=== PATIENT | female | born 1970 | race Two or more races ===

== ENCOUNTER 2017-10-01 19:09 | Emergency (ER) | payer BC ==
[2017-10-01 19:49] LABS: % BASOPHILS 0.6 % (0.0-2.0); % EOSINOPHILS 2.6 % (0.0-5.0); % LYMPHOCYTES 29.4 % (20.0-50.0); % MONOCYTES 9.1 % (2.0-10.0); % NEUTROPHILS 58.3 % (40.0-80.0); EOSINOPHILE ABSOLUTE 0.2 Th/cmm (0.1-0.4); HEMATOCRIT 42.2 % (41.0-60); HEMOGLOBIN 14.3 gm/dL (12-16); LYMPHOCYTE ABSOLUTE 2.2 Th/cmm (1.5-3.0); MEAN CELL VOLUME 88.1 fl (81-100); MEAN PLATELET VOLUME 7.8 fl; MONOCYTE ABSOLUTE 0.7 Th/cmm (0.3-1.0); NEUTROPHILE ABSOLUTE 4.5 Th/cmm (1.8-8.0); PLATELET COUNT 322 Th/cmm (150-400); RED BLOOD COUNT 4.79 Mil/cmm (3.80-5.10); RED CELL DISTRIBUTION WIDTH 11.6 % (11.5-20.0); WHITE BLOOD COUNT 7.6 Th/cmm (4.8-10.8)
[2017-10-01] MEDS ORDERED: Albuterol/Ipratropium Neb 3 ML AERS HHN ONE (19:49)
[2017-10-01 19:59] LABS: URINE MICROSCOPIC INDICATED? YES; URINE SOURCE RANDOM
--- NOTE | 2017-10-01 20:01 | ED Physician Chart ---
ED Chief Complaint/HPI - Patient Information Date Seen:: 10/01/17 Time Seen:: 19:50 Chief Complaint:: Cough History of Present Illness:: 47 yo female had dry cough for 2 weeks. She had chest pain and SOB when coughing. She had chills without fever. She had whooping cough 4 years ago. Allergies:: Allergies Allergy/AdvReac Type Severity Reaction Status Date / Time No Known Allergies Allergy Verified 10/01/17 19:13 Vitals:: Vital Signs - 8 hr 10/01/17 19:14 Temp 98.5 F HR 81 RR 18 BP 134/70 O2 Sat % 99 ED Review of Systems - Review of Systems General/Constitutional: No fever, Chills Skin: No skin lesions Head: Headache Eyes: No pain ENT: No nasal drainage Neck: No neck pain Cardio Vascular: Chest pain Pulmonary: SOB GI: No nausea, No vomiting Musculoskeletal: No bone or joint pain Psychiatric: Anxiety Neurological: No focal symptoms ED Past Medical History - Past Medical History Past Medical History: Asthma/COPD Social History: Non Smoker, No Alcohol, No Drug Use Surgical History: Appendectomy, other (sinus surgery) Psychiatricy History: Other (Anxiety) Family Medical History - Family Member Mother History Unknown: Yes ED Physical Exam - Physical Examination General/Constitutional: Awake Head: Atraumatic Eyes: PERRL Skin: No skin lesions ENMT: Nasal exam nl Neck: No nuchal rigidity Other Respiratory comments:: B/L rhonchi Cardio Vascular: RRR, No murmur, gallop, rubs, NL S1 S2 GI: No tenderness/rebounding/guarding Extremities: normal strength in all extremities Neuro/Psych: No focal deficits ED Labs/Radiology/EKG Results - Lab Results Results: Laboratory Tests 10/01/17 19:42 WBC 7.6 RBC 4.79 Hgb 14.3 Hct 42.2 MCV 88.1 MCH 30.0 MCHC Differential 34.0 RDW 11.6 Plt Count 322 MPV 7.8 Neutrophils % 58.3 Lymphocytes % 29.4 Monocytes % 9.1 Eosinophils % 2.6 Basophils % 0.6 - Radiology Results Results: CXR: no consolidation ED Assessment - Assessment General Assessment: Bronchitis Assessment/Comments:: CBC, CMP, UA, urine hCG Influenza A/B CXR DuoNeb Robitussin Tylenol NS 1L IV bolus Azithromycin 500mg x 1 D/c home Azithromycin 250mg qd x 4 days F/u PCP or return to ER if symptoms worsen ED Septic Shock - . Is Septic Shock (SBP<90, OR Lactate>4 mmol\L) present?: No - <6hrs of presentation: Vital Signs: Vital Signs - 8 hr 10/01/17 19:14 Temp 98.5 F HR 81 RR 18 BP 134/70 O2 Sat % 99 ED Reassessment (Disposition) - Reassessment Reassessment Condition:: Improved - Patient Disposition Discharge/Transfer:: Home ED Discharge Plan - Patient Disposition Admit/Discharge/Transfer: PT DISCHARGED HOME Condition at Disposition: Improved Instructions: Bronchitis, [id number], Form - Excuse from Work, School, or Physical Activity
[2017-10-01 20:04] LABS: ANION GAP 10.8 (7.0-16.0); BUN - UREA NITROGEN 13 mg/dL (7-25); CALCIUM SERUM 9.2 mg/dL (8.6-10.3); CARBON DIOXIDE 22.9 mEq/L (21.0-31.0); CHLORIDE 106 mEq/L (98-107); CREATININE - SERUM 0.8 mg/dL (0.6-1.2); GFR AFRICAN-AMERICAN > 60.0 ml/min (>90); GFR NON AFRICAN-AMERICAN > 60.0 ml/min; GLUCOSE 113 mg/dL (70-105); POTASSIUM SERUM 3.7 mEq/L (3.5-5.1); SODIUM SERUM 136 mEq/L (136-145)
[2017-10-01] MEDS ORDERED: Guaifenesin DM 10 ML UDC PO ONE (20:07)
[2017-10-01] MEDS ORDERED: Guaifenesin DM 10 ML UDC ONE (20:16)
[2017-10-01 20:19] LABS: URINE BILIRUBIN NEGATIVE (NEGATIVE); URINE BLOOD SMALL (NEGATIVE); URINE GLUCOSE (UA) NEGATIVE (NEGATIVE); URINE KETONE NEGATIVE (NEGATIVE); URINE LEUKOCYTE ESTERASE NEGATIVE (NEGATIVE); URINE NITRATE NEGATIVE (NEGATIVE); URINE PROTEIN NEGATIVE (NEGATIVE); URINE UROBILINOGEN 0.2 E.U./dL (0.2 - 1.0)
[2017-10-01] MEDS ORDERED: Sodium Chloride 0.9% 1,000 ML IV ONE (20:24)
[2017-10-01 20:28] LABS: URINE CLARITY CLEAR (CLEAR); URINE COLOR YELLOW
[2017-10-01 20:34] LABS: URINE BACTERIA FEW /hpf (NONE SEEN); URINE EPITHELIAL CELLS MANY /lpf (FEW); URINE RBC 0-2 /hpf (0-5); URINE WBC 0-2 /hpf (0-5)
[2017-10-01 22:08] LABS: INF A SCREEN NEG FOR INF A; INF B SCREEN NEG FOR INF B
--- NOTE | 2017-10-02 07:46 | Diagnostic Imaging Report ---
CHEST X-RAY: AP view INDICATION: Cough, congestion COMPARISON: None FINDINGS: There is mild elevation of the right hemidiaphragm. Slight increased interstitial lung markings are noted. There is no focal consolidation or pleural effusions The heart is normal in size. The osseous structures demonstrate no acute abnormalities. IMPRESSION: Slight increased interstitial lung markings. No focal consolidation or evidence of CHF.
== END 2017-10-01 22:35 | disposition home or self-care (01) ==
LOC: ER 19:09
DX: J40 Bronchitis, not specified as acute or chronic (principal); J44.9 Chronic obstructive pulmonary disease, unspecified; J45.909 Unspecified asthma, uncomplicated; Z90.49 Acquired absence of other specified parts of digestive tract
CPT/HCPCS: 36415-UA; 71045-TC; 80048-TC; 81001-TC; 81025-TC; 85025-TC; 87804-TC; Z7610